=== PATIENT | female | born 1955 | race Caucasian/White ===

== ENCOUNTER 2017-12-28 01:28 | Inpatient (IN) | payer OTHER ==
[2017-12-28] MEDS ORDERED: APRESOLINE IV ONE (01:33)
[2017-12-28] MEDS ORDERED: SUBLIMAZE IV ONE (01:33)
[2017-12-28] MEDS ORDERED: NACL 0.9% 500 ML 500 ML IV ONE (01:34)
[2017-12-28] MEDS ORDERED: NITROSTAT SL PRN (01:35)
--- NOTE | 2017-12-28 01:37 | Emergency Department Report ---
ED General Adult HPI - General Chief complaint: Weakness Stated complaint: POSS STROKE Time Seen by Provider: 12/28/17 01:33 Source: patient, EMS (my EMS disclaimer. Verbal report received from EMS.ems notes not available at time of chart dictation), RN notes reviewed Mode of arrival: Stretcher Limitations: Language Barrier, Physical Limitation - History of Present Illness Initial comments: emergency room rn: Nurse Merissa Duran This is a 62-year-old female who is not known to this provider previously. Past medical history includes hypertension and obesity. The patient is brought to the hospital by EMS with a primary complaint of chest pain. EMS also verbally indicated that the patient had an unresponsive and hypertensive episode in the field. Patient may have syncopized. She is not certain. In the emergency room she complains of chest pain. She indicates the chest pain is central. It does not radiate to the back, arms and neck. She is having difficulty describing a qualitative nature of the symptoms. She does not recall losing consciousness or passing out prior to arrival. She also complains of abdominal pain. She might have a headache, she is not certain. She denies focal extremity weakness. The patient is not able to describe radiation, exacerbating or relieving factors of her symptoms. -: Sudden Location: chest, abdomen Quality: other Consistency: other Improves with: other Worsens with: other Associated Symptoms: confusion, chest pain, loss of appetite, syncope - Related Data Home Medications Medication Instructions Recorded Confirmed Last Taken ALBUTEROL Inhaler (OR & NICU) 2 puff IH QID PRN 08/28/14 12/16/14 08/27/14 18:00 [Proair] Acetaminophen with Codeine 300 mg PO Q12HR PRN 08/28/14 12/16/14 09/02/14 18:00 [Acetaminophen-Codeine #2 TAB] Cetirizine HCl [ZyrTEC] 10 mg PO QDAY 08/28/14 12/16/14 09/02/14 18:00 Dicyclomine [Bentyl] 10 mg PO QID 08/28/14 12/16/14 09/02/14 18:00 Esomeprazole Magnesium [NexIUM 1 tab PO BID 08/28/14 12/16/14 09/02/14 18:00 24Hr] Gemfibrozil [Lopid] 600 mg PO BID 08/28/14 12/16/14 09/02/14 18:00 Losartan/Hydrochlorothiazide 1 each PO QDAY 08/28/14 12/16/14 09/02/14 18:00 [Hyzaar 100-25 Tablet] PARoxetine [Paxil] 20 mg PO DAILY 08/28/14 12/16/14 09/02/14 18:00 raNITIdine HCl [Ranitidine 150mg 150 mg PO BID 08/28/14 12/16/14 09/02/14 18:00 Cap] Previous Rx's Medication Instructions Recorded Last Taken Type Ibuprofen [Motrin] 800 mg PO TID #40 tablet 03/04/13 09/02/14 18:00 Rx methOCARBAMOL [Robaxin] 500 mg PO BID #30 tab 03/04/13 09/02/14 18:00 Rx traMADol [Ultram 50 MG tab] 50 mg PO Q6HR PRN #20 tablet 03/04/13 09/02/14 18: 00 Rx Allergies Allergy/AdvReac Type Severity Reaction Status Date / Time No Known Allergies Allergy Unverified 03/04/13 14:28 ED Review of Systems ROS: Stated complaint: POSS STROKE Other details as noted in HPI Comment: Unobtainable due to pts medical conditions ED Past Medical Hx - Past Medical History Hx Hypertension: Yes (8YRS) Hx Heart Attack/AMI: No Hx Liver Disease: No Hx Renal Disease: No Hx Arthritis: Yes (KNEES) Hx Seizures: No Hx Asthma: No (but has inhaler for frequent colds) Hx COPD: No - Social History Smoking Status: Never Smoker - Medications Home Medications: Home Medications Medication Instructions Recorded Confirmed Last Taken Type Ibuprofen [Motrin] 800 mg PO TID #40 tablet 03/04/13 12/16/14 09/02/14 18:00 Rx methOCARBAMOL [Robaxin] 500 mg PO BID #30 tab 03/04/13 12/16/14 09/02/14 18:00 Rx traMADol [Ultram 50 MG tab] 50 mg PO Q6HR PRN #20 tablet 03/04/13 12/16/1409/02 18:00 Rx ALBUTEROL Inhaler (OR & NICU) 2 puff IH QID PRN 08/28/14 12/16/14 08/27/14 18: 00 History [Proair] Acetaminophen with Codeine 300 mg PO Q12HR PRN 08/28/14 12/16/14 09/02/14 18:00 History [Acetaminophen-Codeine #2 TAB] Cetirizine HCl [ZyrTEC] 10 mg PO QDAY 08/28/14 12/16/14 09/02/14 18:00 History Dicyclomine [Bentyl] 10 mg PO QID 08/28/14 12/16/14 09/02/14 18:00 History Esomeprazole Magnesium [NexIUM 1 tab PO BID 08/28/14 12/16/14 09/02/14 18:00 History 24Hr] Gemfibrozil [Lopid] 600 mg PO BID 08/28/14 12/16/14 09/02/14 18:00 History Losartan/Hydrochlorothiazide 1 each PO QDAY 08/28/14 12/16/14 09/02/14 18:00 History [Hyzaar 100-25 Tablet] PARoxetine [Paxil] 20 mg PO DAILY 08/28/14 12/16/14 09/02/14 18:00 History raNITIdine HCl [Ranitidine 150mg 150 mg PO BID 08/28/14 12/16/14 09/02/14 18:00 History Cap] ED Physical Exam - General Limitations: Physical Limitation General appearance: alert, anxious, in distress, obese - Head Head exam: Present: atraumatic, normocephalic - Eye Eye exam: Present: normal appearance, EOMI. Absent: nystagmus - ENT ENT exam: Present: normal exam, normal orophraynx, mucous membranes moist, normal external ear exam - Neck Neck exam: Present: normal inspection, full ROM. Absent: tenderness, meningismus - Respiratory Respiratory exam: Present: normal lung sounds bilaterally. Absent: respiratory distress - Cardiovascular Cardiovascular Exam: Present: regular rate, normal rhythm, normal heart sounds. Absent: bradycardia, tachycardia, irregular rhythm, systolic murmur, diastolic murmur, rubs, gallop - GI/Abdominal GI/Abdominal exam: Present: soft. Absent: distended, tenderness, guarding, rebound, rigid, pulsatile mass - Extremities Exam Extremities exam: Present: normal inspection, full ROM, normal capillary refill , other (2+ pulses noted in the bilateral upper, lower extremities. Compartments soft. No long bony tenderness. The pelvis is stable.). Absent: tenderness, pedal edema, joint swelling, calf tenderness - Back Exam Back exam: Present: normal inspection, full ROM. Absent: tenderness, CVA tenderness (R), paraspinal tenderness, vertebral tenderness - Neurological Exam Neurological exam: Present: alert, CN II-XII intact, other (Extraocular movements intact. Tongue midline. No facial droop. Facial sensation intact to light touch in the V1, V2, V3 distribution bilaterally. 5 and 5 strength in 4 extremities.. Sensation is intact to light touch in 4 extremities.). Absent : motor sensory deficit - Psychiatric Psychiatric exam: Present: anxious - Skin Skin exam: Present: warm, dry, intact, normal color. Absent: rash ED Course Vital Signs 12/28/17 12/28/17 12/28/17 01:42 02:14 02:18 Temperature 98.1 F Pulse Rate 91 H 72 Respiratory 13 18 Rate Blood Pressure 194/103 173/83 Blood Pressure 194/103 [Left] O2 Sat by Pulse 98 Oximetry 12/28/17 12/28/17 03:30 04:00 Temperature Pulse Rate 90 83 Respiratory 15 14 Rate Blood Pressure 158/76 158/76 Blood Pressure [Left] O2 Sat by Pulse Oximetry - Reevaluation(s) Reevaluation #1: 12/28/17 02:42 Differential diagnosis, including but not limited to: Acute coronary syndrome, aortic disease, pneumonia, hiatal hernia, hypertensive urgency, arrhythmia, structural cardiac disease, intracranial hemorrhage, transient ischemic attack, hypertensive urgency Assessment and plan: 62-year-old female with a primary complaint of chest pain, and a reported episode of loss of consciousness and unresponsiveness in the field. Patient has a GCS of 15, with an NIH score of 0 at this time. She has no lateralizing motor deficits and her sensation is intact to light touch in her upper and lower extremities, has an NIH score of 0, and is therefore not a TPA candidate. She is quite hypertensive, and has equal pulses in upper, lower extremities. Given her complaint of chest pain, hypertension, episode of unresponsiveness, emergent angiogram has been ordered to exclude aortic disease. The patient's pain will be treated, and she will be given fluids and hydralazine. We will reassess after her imaging has resulted. Reevaluation #2: 12/28/17 04:43 CT scan of the brain shows no bleed. Possible subacute CVA is noted. Has an NIH score of 0 at this time. Does not merit tPA and does not require emergent endovascular imaging at this time. No dissection or pulmonary embolus is noted. Blood pressure improved. Repeat motor exam unchanged. Dr. Dukes accepted the patient to the medical service on behalf of Dr. Wesley ED Medical Decision Making - Lab Data Result diagrams: 12/28/17 01:30 12/28/17 01:30 Vital Signs 12/28/17 12/28/17 12/28/17 01:42 02:14 02:18 Temperature 98.1 F Pulse Rate 91 H 72 Respiratory 13 18 Rate Blood Pressure 194/103 173/83 Blood Pressure 194/103 [Left] O2 Sat by Pulse 98 Oximetry Lab Results 12/28/17 12/28/17 12/28/17 Range/Units 01:30 01:30 01:59 WBC 10.4 (4.5-11.0) K/mm3 RBC 3.74 (3.65-5.03) M/mm3 Hgb 12.6 (10.1-14.3) gm/dl Hct 36.7 (30.3-42.9) % MCV 98 H (79-97) fl MCH 34 H (28-32) pg MCHC 34 (30-34) % RDW 13.2 (13.2-15.2) % Plt Count 202 (140-440) K/mm3 Lymph % (Auto) 41.4 H (13.4-35.0) % Spink % (Auto) 7.3 (0.0-7.3) % Eos % (Auto) 3.5 (0.0-4.3) % Baso % (Auto) 0.4 (0.0-1.8) % Lymph # 4.3 (1.2-5.4) K/mm3 Spink # 0.8 (0.0-0.8) K/mm3 Eos # 0.4 (0.0-0.4) K/mm3 Baso # 0.0 (0.0-0.1) K/mm3 Seg Neutrophils % 47.4 (40.0-70.0) % Seg Neutrophils # 4.9 (1.8-7.7) K/mm3 PT 13.3 (12.2-14.9) Sec. INR 0.96 (0.87-1.13) APTT 29.0 (24.2-36.6) Sec. POC Glucose 129 H (70-105) Labs 12/28/17 12/28/17 12/28/17 01:30 01:30 01:30 WBC 10.4 RBC 3.74 Hgb 12.6 Hct 36.7 MCV 98 H MCH 34 H MCHC 34 RDW 13.2 Plt Count 202 Lymph % (Auto) 41.4 H Spink % (Auto) 7.3 Eos % (Auto) 3.5 Baso % (Auto) 0.4 Lymph # 4.3 Spink # 0.8 Eos # 0.4 Baso # 0.0 Seg Neutrophils % 47.4 Seg Neutrophils # 4.9 PT 13.3 INR 0.96 APTT 29.0 Thrombin Time 16.8 Sodium 141 Potassium 4.8 Chloride 105.0 Carbon Dioxide 22 Anion Gap 19 BUN 28 H Creatinine 0.6 L Estimated GFR > 60 BUN/Creatinine Ratio 47 Glucose 121 H POC Glucose Calcium 9.3 Total Bilirubin 0.20 AST 28 ALT 19 Alkaline Phosphatase 93 Total Creatine Kinase 98 CK-MB (CK-2) 1.2 CK-MB (CK-2) Rel Index 1.2 Troponin T < 0.010 Total Protein 7.9 Albumin 3.9 Albumin/Globulin Ratio 1.0 Salicylates Acetaminophen Plasma/Serum Alcohol 12/28/17 12/28/17 12/28/17 01:30 01:30 01:30 WBC RBC Hgb Hct MCV MCH MCHC RDW Plt Count Lymph % (Auto) Spink % (Auto) Eos % (Auto) Baso % (Auto) Lymph # Spink # Eos # Baso # Seg Neutrophils % Seg Neutrophils # PT INR APTT Thrombin Time Sodium Potassium Chloride Carbon Dioxide Anion Gap BUN Creatinine Estimated GFR BUN/Creatinine Ratio Glucose POC Glucose Calcium Total Bilirubin AST ALT Alkaline Phosphatase Total Creatine Kinase CK-MB (CK-2) CK-MB (CK-2) Rel Index Troponin T Total Protein Albumin Albumin/Globulin Ratio Salicylates < 0.3 L Acetaminophen < 5.0 L Plasma/Serum Alcohol < 0.01 12/28/17 01:59 WBC RBC Hgb Hct MCV MCH MCHC RDW Plt Count Lymph % (Auto) Spink % (Auto) Eos % (Auto) Baso % (Auto) Lymph # Spink # Eos # Baso # Seg Neutrophils % Seg Neutrophils # PT INR APTT Thrombin Time Sodium Potassium Chloride Carbon Dioxide Anion Gap BUN Creatinine Estimated GFR BUN/Creatinine Ratio Glucose POC Glucose 129 H Calcium Total Bilirubin AST ALT Alkaline Phosphatase Total Creatine Kinase CK-MB (CK-2) CK-MB (CK-2) Rel Index Troponin T Total Protein Albumin Albumin/Globulin Ratio Salicylates Acetaminophen Plasma/Serum Alcohol - EKG Data -: EKG Interpreted by Me EKG shows normal: sinus rhythm - EKG Data When compared to previous EKG there are: previous EKG unavailable 12/28/17 02:45 Sinus, 89 bpm, normal axis, normal intervals, low voltage, motion artifact, not a STEMI - Radiology Data Radiology results: report reviewed, image reviewed X-ray of the chest shows no acute disease. Blunting of the right costophrenic angles noted, pleural thickening versus pleural effusion is suggested. Critical care attestation.: If time is entered above; I have spent that time in minutes in the direct care of this critically ill patient, excluding procedure time. ED Disposition Clinical Impression: Chest pain, Unresponsive episode, Hypertensive urgency Disposition: OP ADMIT IP TO THIS HOSP Is pt being admited?: Yes Does the pt Need Aspirin: Yes Condition: Good Instructions: Chest Pain (ED)
[2017-12-28 02:17] LABS: Basophils % (Auto) 0.4 % (0.0-1.8); Eosinophils # (Auto) 0.4 K/mm3 (0.0-0.4); Eosinophils % (Auto) 3.5 % (0.0-4.3); Hematocrit 36.7 % (30.3-42.9); Hemoglobin 12.6 gm/dl (10.1-14.3); Lymphocytes # (Auto) 4.3 K/mm3 (1.2-5.4); Lymphocytes % (Auto) 41.4 % (13.4-35.0); Mean Corpuscular HGB Conc 34 % (30-34); Mean Corpuscular Hemoglobin 34 pg (28-32); Mean Corpuscular Volume 98 fl (79-97); Monocytes # (Auto) 0.8 K/mm3 (0.0-0.8); Monocytes % (Auto) 7.3 % (0.0-7.3); Platelet Count 202 K/mm3 (140-440); Red Blood Count 3.74 M/mm3 (3.65-5.03); Red Cell Distribution Width 13.2 % (13.2-15.2)
--- NOTE | 2017-12-28 02:21 | XRay Report ---
FINAL REPORT EXAM: XR CXR CLINICAL INDICATIONS: CP FINDINGS: Single frontal view of the chest was acquired. The heart is normal in size. The lungs appear clear. There is blunting of the right costophrenic sulcus which could represent pleural thickening or small pleural effusion. IMPRESSION: NO CONSOLIDATIVE PULMONARY INFILTRATE BLUNTING OF RIGHT COSTOPHRENIC SULCUS, PLEURAL THICKENING OR PLEURAL EFFUSION
[2017-12-28 02:31] LABS: INR 0.96 (0.87-1.13)
[2017-12-28 02:43] LABS: Creatine Kinase MB 1.2 ng/mL (0.0-4.0)
[2017-12-28 02:44] LABS: Albumin 3.9 g/dL (3.9-5); BUN/Creatinine Ratio 47; Blood Urea Nitrogen 28 mg/dL (7-17); Calcium 9.3 mg/dL (8.4-10.2); Hemolysis Index 194
[2017-12-28 02:48] LABS: Thrombin Time 16.8 Sec. (15.1-19.6)
[2017-12-28 02:50] LABS: Alanine Aminotransferase 19 units/L (7-56)
--- NOTE | 2017-12-28 04:06 | Cat Scan Report ---
FINAL REPORT EXAM: CT HEAD/BRAIN WO CON HISTORY: Stroke symptoms TECHNIQUE: CT imaging acquired through the head without intravenous contrast. Transaxial reformations are provided. PRIORS: None. FINDINGS: The ventricles, cisterns and sulci are within normal limits. No intraparenchymal or extra-axial mass, hemorrhage, or mass effect. Predominantly subcortical white matter hypodensity within the superior right frontal gyrus on axial series 2, image 52 has some transcortical features on a couple of images. Bo and white-matter differentiation is otherwise within normal limits for patient age. Normal spherical shape of the globes. No significant abnormality involving the imaged portions of the paranasal sinuses and mastoid air cells. No skull or facial fracture visualized. IMPRESSION: Area of hypodensity in the superior right frontal gyrus could potentially be sequela of infarct in the distribution of the right anterior cerebral artery. There is no acute intracranial hemorrhage or mass effect. Dr. Hall discussed findings with at 0301 central Time on 12/28/2017 immediately following the examination.
--- NOTE | 2017-12-28 04:12 | Cat Scan Report ---
FINAL REPORT EXAM: CT ANGIO CHEST HISTORY: chest pain dissection protocol TECHNIQUE: CT imaging obtained through the chest in combined systemic and pulmonary angiographic phase following intravenous administration of contrast. Transaxial, Coronal and sagittal reformats with maximal intensity projections are provided. PRIORS: Chest radiograph of the same date. FINDINGS: Normal caliber main pulmonary artery. Well opacified pulmonary arterial tree. No pulmonary embolism. No pericardial effusion. Thoracic aorta is normal in course and caliber. No the wall irregularity, periaortic fluid or stranding. No pneumothorax, effusion or focal airspace disease. Right lower lung punctate calcified pulmonary granuloma. Calcification along the right diaphragmatic pleura. Very mild posterior right lower lung pleural thickening accounts for blunting of the right costophrenic angle. The central airways are patent. No bronchiectasis. Imaged portion of the upper abdomen is unremarkable. Please see CT abdomen and pelvis angiogram of the same date. The superficial soft tissues are unremarkable. Old posterior right 10th rib fracture deformity. No acute bony abnormality or worrisome osseous lesions identified. IMPRESSION: No findings of acute aortic syndrome, pulmonary embolism or other acute abnormality.
--- NOTE | 2017-12-28 04:17 | Cat Scan Report ---
FINAL REPORT EXAM: CT ANGIO ABDOMEN PELVIS HISTORY: abd pain dissection protocol TECHNIQUE: CT images are acquired through the Abdomen and Pelvis in angiographic phase following intravenous administration of contrast. Transaxial, coronal and sagittal reformations with maximal intensity projection are provided. PRIORS: None FINDINGS: Please see CT chest angiogram of the same date. The liver, gallbladder, pancreas, spleen, and adrenal glands are unremarkable. Kidneys show no worrisome lesions, hydronephrosis, or calculi. Urinary bladder is unremarkable. Anteverted uterus. No free fluid in the pelvis. Pelvic phleboliths are noted. Small and large bowel are normal in caliber. Sigmoid diverticulosis without surrounding inflammatory findings. Appendix is normal. No free air, free fluid, or lymphadenopathy identified. Aorta is normal in course and caliber. Superficial soft tissues are unremarkable. No acute or aggressive appearing skeletal findings. Lower lumbar sequela of disc degeneration including disc extrusion with caudal extension in the lower lumbar spine on sagittal image 111. There is transitional lumbosacral anatomy. IMPRESSION: No acute findings in the abdomen or pelvis including no findings of acute aortic syndrome.
[2017-12-28] MEDS ORDERED: BABY ASPIRIN PO ONE (04:44)
[2017-12-28] MEDS ORDERED: MORPHINE IV PRN (07:51)
[2017-12-28] MEDS ORDERED: TYLENOL PO PRN (07:51)
[2017-12-28] MEDS ORDERED: MILK OF MAGNESIA PO PRN (07:51)
[2017-12-28] MEDS ORDERED: SODIUM CHLORIDE FLUSH SYRINGE 10 ML IV PRN (07:51)
--- NOTE | 2017-12-28 07:56 | History and Physical Report ---
History of Present Illness Date of admission: 12/28/17 04:44 Medications and Allergies Allergies Allergy/AdvReac Type Severity Reaction Status Date / Time No Known Allergies Allergy Unverified 03/04/13 14:28 Home Medications Medication Instructions Recorded Confirmed Last Taken Type Ibuprofen [Motrin] 800 mg PO TID #40 tablet 03/04/13 12/28/17 09/02/14 18:00 Rx methOCARBAMOL [Robaxin] 500 mg PO BID #30 tab 03/04/13 12/28/17 09/02/14 18:00 Rx ALBUTEROL Inhaler (OR & NICU) 2 puff IH QID PRN 08/28/14 12/28/17 08/27/14 18: 00 History [Proair] Cetirizine HCl [ZyrTEC] 10 mg PO QDAY 08/28/14 12/28/17 09/02/14 18:00 History Dicyclomine [Bentyl] 10 mg PO QID 08/28/14 12/28/17 09/02/14 18:00 History Esomeprazole Magnesium [NexIUM 1 tab PO BID 08/28/14 12/28/17 09/02/14 18:00 History 24Hr] Gemfibrozil [Lopid] 600 mg PO BID 08/28/14 12/28/17 09/02/14 18:00 History Losartan/Hydrochlorothiazide 1 each PO QDAY 08/28/14 12/28/17 09/02/14 18:00 History [Hyzaar 100-25 Tablet] PARoxetine [Paxil] 20 mg PO DAILY 08/28/14 12/28/17 09/02/14 18:00 History raNITIdine HCl [Ranitidine 150mg 150 mg PO BID 08/28/14 12/28/17 09/02/14 18:00 History Cap] Active Meds: Active Medications Nitroglycerin (Nitrostat) 0.4 mg SL .Q5MIN PRN PRN Reason: Chest Pain Exam - Constitutional Vitals: Temp Pulse Resp BP Pulse Ox 98.1 F 63 13 132/51 100 12/28/17 07:40 12/28/17 07:40 12/28/17 07:51 12/28/17 07:40 12/28/17 07:51 Results - Labs CBC & Chem 7: 12/28/17 01:30 12/28/17 01:30 Labs: Laboratory Last Values WBC 10.4 K/mm3 (4.5-11.0) 12/28/17 01:30 RBC 3.74 M/mm3 (3.65-5.03) 12/28/17 01:30 Hgb 12.6 gm/dl (10.1-14.3) 12/28/17 01:30 Hct 36.7 % (30.3-42.9) 12/28/17 01:30 MCV 98 fl (79-97) H 12/28/17 01:30 MCH 34 pg (28-32) H 12/28/17 01:30 MCHC 34 % (30-34) 12/28/17 01:30 RDW 13.2 % (13.2-15.2) 12/28/17 01:30 Plt Count 202 K/mm3 (140-440) 12/28/17 01:30 Lymph % (Auto) 41.4 % (13.4-35.0) H 12/28/17 01:30 [place] % (Auto) 7.3 % (0.0-7.3) 12/28/17 01:30 Eos % (Auto) 3.5 % (0.0-4.3) 12/28/17 01:30 Baso % (Auto) 0.4 % (0.0-1.8) 12/28/17 01:30 Lymph # 4.3 K/mm3 (1.2-5.4) 12/28/17 01:30 [place] # 0.8 K/mm3 (0.0-0.8) 12/28/17 01:30 Eos # 0.4 K/mm3 (0.0-0.4) 12/28/17 01:30 Baso # 0.0 K/mm3 (0.0-0.1) 12/28/17 01:30 Seg Neutrophils % 47.4 % (40.0-70.0) 12/28/17 01:30 Seg Neutrophils # 4.9 K/mm3 (1.8-7.7) 12/28/17 01:30 PT 13.3 Sec. (12.2-14.9) 12/28/17 01:30 INR 0.96 (0.87-1.13) 12/28/17 01:30 APTT 29.0 Sec. (24.2-36.6) 12/28/17 01:30 Thrombin Time 16.8 Sec. (15.1-19.6) 12/28/17 01:30 Sodium 141 mmol/L (137-145) 12/28/17 01:30 Potassium 4.8 mmol/L (3.6-5.0) 12/28/17 01:30 Chloride 105.0 mmol/L (98-107) 12/28/17 01:30 Carbon Dioxide 22 mmol/L (22-30) 12/28/17 01:30 Anion Gap 19 mmol/L 12/28/17 01:30 BUN 28 mg/dL (7-17) H 12/28/17 01:30 Creatinine 0.6 mg/dL (0.7-1.2) L 12/28/17 01:30 Estimated GFR > 60 ml/min 12/28/17 01:30 BUN/Creatinine Ratio 47 % 12/28/17 01:30 Glucose 121 mg/dL (65-100) H 12/28/17 01:30 POC Glucose 129 (70-105) H 12/28/17 01:59 Calcium 9.3 mg/dL (8.4-10.2) 12/28/17 01:30 Total Bilirubin 0.20 mg/dL (0.1-1.2) 12/28/17 01:30 AST 28 units/L (5-40) 12/28/17 01:30 ALT 19 units/L (7-56) 12/28/17 01:30 Alkaline Phosphatase 93 units/L (35-129) 12/28/17 01:30 Total Creatine Kinase 98 units/L (30-135) 12/28/17 01:30 CK-MB (CK-2) 1.2 ng/mL (0.0-4.0) 12/28/17 01:30 CK-MB (CK-2) Rel Index 1.2 (0-4) 12/28/17 01:30 Troponin T < 0.010 ng/mL (0.00-0.029) 12/28/17 01:30 Total Protein 7.9 g/dL (6.3-8.2) 12/28/17 01:30 Albumin 3.9 g/dL (3.9-5) 12/28/17 01:30 Albumin/Globulin Ratio 1.0 % 12/28/17 01:30 Salicylates < 0.3 mg/dL (2.8-20.0) L 12/28/17 01:30 Acetaminophen < 5.0 ug/mL (10.0-30.0) L 12/28/17 01:30 Plasma/Serum Alcohol < 0.01 % (0-0.07) 12/28/17 01:30
[2017-12-28] MEDS ORDERED: PHENERGAN PR PRN (09:30)
[2017-12-28] MEDS ORDERED: ZOFRAN IV PRN (09:30)
[2017-12-28] MEDS ORDERED: REGLAN PO PRN (09:30)
[2017-12-28] MEDS ORDERED: DULCOLAX PR PRN (10:00)
--- NOTE | 2017-12-28 11:50 | Consultation ---
History of Present Illness Consult date: 12/28/17 Consult reason: chest pain, syncope History of present illness: This is a 62 year old woman who does not speak Egyptian. Family members at bedside used for translation, reports that patient has a history of hypertension and diabetes. There is no history of coronary artery disease or prior cardiac evaluation. Patient was brought in with syncope. Cardiac consultation was requested. Family members at bedside reports the patient became diaphoretic and passed out shortly after hearing her son was in an accident. On assessment, the patient's chest pain appears musculoskeletal. Her pain is reproducible with palpation. Noted a systolic blood pressure greater than [address] scan reports a possible infarct of the right anterior cerebral artery but no intracranial hemorrhage. Chest CT scan is negative for pulmonary embolism. 12 lead ECG shows a normal sinus rhythm, no acute ischemic changes. Medications and Allergies Allergies Allergy/AdvReac Type Severity Reaction Status Date / Time No Known Allergies Allergy Unverified 03/04/13 14:28 Home Medications Medication Instructions Recorded Confirmed Last Taken Type Ibuprofen [Motrin] 800 mg PO TID #40 tablet 03/04/13 12/28/17 09/02/14 18:00 Rx methOCARBAMOL [Robaxin] 500 mg PO BID #30 tab 03/04/13 12/28/17 09/02/14 18:00 Rx ALBUTEROL Inhaler (OR & NICU) 2 puff IH QID PRN 08/28/14 12/28/17 08/27/14 18: 00 History [Proair] Cetirizine HCl [ZyrTEC] 10 mg PO QDAY 08/28/14 12/28/17 09/02/14 18:00 History Dicyclomine [Bentyl] 10 mg PO QID 08/28/14 12/28/17 09/02/14 18:00 History Esomeprazole Magnesium [NexIUM 1 tab PO BID 08/28/14 12/28/17 09/02/14 18:00 History 24Hr] Gemfibrozil [Lopid] 600 mg PO BID 08/28/14 12/28/17 09/02/14 18:00 History Losartan/Hydrochlorothiazide 1 each PO QDAY 08/28/14 12/28/17 09/02/14 18:00 History [Hyzaar 100-25 Tablet] PARoxetine [Paxil] 20 mg PO DAILY 08/28/14 12/28/17 09/02/14 18:00 History raNITIdine HCl [Ranitidine 150mg 150 mg PO BID 08/28/14 12/28/17 09/02/14 18:00 History Cap] Active Meds: Active Medications Acetaminophen (Tylenol) 650 mg PO Q4H PRN PRN Reason: Pain MILD(1-3)/Fever >100.5/DUNBAR Aspirin (Ecotrin) 325 mg PO QDAY GABRIEL Atorvastatin Calcium (Lipitor) 40 mg PO QHS GABRIEL Bisacodyl (Dulcolax) 10 mg [place] QDAY PRN PRN Reason: Constipation Magnesium Hydroxide (Milk Of Magnesia) 30 ml PO Q4H PRN PRN Reason: Constipation Metoclopramide HCl (Reglan) 10 mg PO Q6H PRN PRN Reason: Nausea And Vomiting Morphine Sulfate (Morphine) 2 mg IV Q5MIN PRN PRN Reason: Chest Pain unrelieved by NTG Nitroglycerin (Nitrostat) 0.4 mg SL .Q5MIN PRN PRN Reason: Chest Pain Ondansetron HCl (Zofran) 4 mg IV Q8H PRN PRN Reason: Nausea And Vomiting Promethazine HCl (Phenergan) 25 mg [place] Q6H PRN PRN Reason: Nausea And Vomiting Sodium Chloride (Sodium Chloride Flush Syringe 10 Ml) 10 ml IV PRN PRN PRN Reason: LINE FLUSH Physical Examination Vital Signs Temp Pulse Resp BP Pulse Ox 98 F 91 H 13 194/103 98 12/28/17 01:42 12/28/17 01:42 12/28/17 01:42 12/28/17 01:42 12/28/17 01:42 General appearance: no acute distress HEENT: Positive: PERRL Cardiac: Positive: Reg Rate and Rhythm Lungs: Positive: Decreased Breath Sounds Neuro: Positive: Grossly Intact Extremities: Absent: edema Results 12/28/17 01:30 12/28/17 01:30 Cardiac Enzymes 12/28/17 Range/Units 01:30 AST 28 (5-40) units/L CK-MB (CK-2) 1.2 (0.0-4.0) ng/mL Coagulation 12/28/17 Range/Units 01:30 PT 13.3 (12.2-14.9) Sec. INR 0.96 (0.87-1.13) APTT 29.0 (24.2-36.6) Sec. CBC 12/28/17 Range/Units 01:30 WBC 10.4 (4.5-11.0) K/mm3 RBC 3.74 (3.65-5.03) M/mm3 Hgb 12.6 (10.1-14.3) gm/dl Hct 36.7 (30.3-42.9) % Plt Count 202 (140-440) K/mm3 Lymph # 4.3 (1.2-5.4) K/mm3 [place] # 0.8 (0.0-0.8) K/mm3 Eos # 0.4 (0.0-0.4) K/mm3 Baso # 0.0 (0.0-0.1) K/mm3 Comprehensive Metabolic Panel 12/28/17 Range/Units 01:30 Sodium 141 (137-145) mmol/L Potassium 4.8 (3.6-5.0) mmol/L Chloride 105.0 (98-107) mmol/L Carbon Dioxide 22 (22-30) mmol/L BUN 28 H (7-17) mg/dL Creatinine 0.6 L (0.7-1.2) mg/dL Glucose 121 H (65-100) mg/dL Calcium 9.3 (8.4-10.2) mg/dL AST 28 (5-40) units/L ALT 19 (7-56) units/L Alkaline Phosphatase 93 (35-129) units/L Total Protein 7.9 (6.3-8.2) g/dL Albumin 3.9 (3.9-5) g/dL Assessment and Plan Syncope chest CT scan is negative for pulmonary embolism Questionable CVA head CT scan reports a possible infarct of the right anterior cerebral artery but no intracranial hemorrhage. Chest pain, musculoskeletal Hypertension Diabetes
--- NOTE | 2017-12-28 12:36 | Magnetic Resonance Report ---
MRI OF THE BRAIN WITHOUT CONTRAST: HISTORY: CVA PROCEDURE: Multiplanar, multisequence MR imaging of the brain without IV contrast was performed. FINDINGS: There are scattered areas of increased T2 signal in the periventricular and subcortical white matter which is a nonspecific finding. The remaining brain parenchyma is unremarkable on all sequences. No evidence for acute ischemia, hemorrhage or mass. No chronic infarct or extra-axial fluid collection. The midline structures are central. The basal cisterns are patent. Normal ventricular size. The orbital cavities and sella turcica demonstrate no abnormality. The visualized paranasal sinuses and mastoid air cells are well aerated. IMPRESSION: Nonspecific chronic white matter changes. No acute intracranial process is identified.
[2017-12-28 13:48] LABS: BUN/Creatinine Ratio 33; Blood Urea Nitrogen 20 mg/dL (7-17); Calcium 8.9 mg/dL (8.4-10.2); HDL Cholesterol 32 mg/dL (40-59); Hemolysis Index 8; LDL Cholesterol,Direct 134 mg/dL (50-130)
--- NOTE | 2017-12-28 16:55 | Consultation ---
History of Present Illness Consult date: 12/28/17 Requesting physician: SIDDHARTH MEJIA Reason for Consult: syncope History of present illness: This is a 62 year old woman who does not speak Brazilian. Family members at bedside used for translation, reports that patient has a history of hypertension and diabetes. There is no history of coronary artery disease or prior cardiac evaluation. The patient received some bad news, that her son was in a car accident. This prompted some emotion and the patient complained of chest pain and passed out. She came to ER where EKG was without abnormality, troponin not elevated. A brain CT revealed a small hypodensity in the rt.superior central gyrus, which could have been an infarct. Pt.was admitted for evaluation. Echocardiogram is normal with a 60% EF and CTA chest neg. for PE. The pt. has had no further symptoms, and is resting comfortably. BP was 194 /103 on arrival to ER. Lipids and triglycerides are also elevated. Past History Past Medical History: hypertension Social history: , lives with family. denies: smoking, alcohol abuse Medications and Allergies Allergies Allergy/AdvReac Type Severity Reaction Status Date / Time No Known Allergies Allergy Unverified 03/04/13 14:28 Home Medications Medication Instructions Recorded Confirmed Last Taken Type Ibuprofen [Motrin] 800 mg PO TID #40 tablet 03/04/13 12/28/17 09/02/14 18:00 Rx methOCARBAMOL [Robaxin] 500 mg PO BID #30 tab 03/04/13 12/28/17 09/02/14 18:00 Rx ALBUTEROL Inhaler (OR & NICU) 2 puff IH QID PRN 08/28/14 12/28/17 08/27/14 18: 00 History [Proair] Cetirizine HCl [ZyrTEC] 10 mg PO QDAY 08/28/14 12/28/17 09/02/14 18:00 History Dicyclomine [Bentyl] 10 mg PO QID 08/28/14 12/28/17 09/02/14 18:00 History Esomeprazole Magnesium [NexIUM 1 tab PO BID 08/28/14 12/28/17 09/02/14 18:00 History 24Hr] Gemfibrozil [Lopid] 600 mg PO BID 08/28/14 12/28/17 09/02/14 18:00 History Losartan/Hydrochlorothiazide 1 each PO QDAY 08/28/14 12/28/17 09/02/14 18:00 History [Hyzaar 100-25 Tablet] PARoxetine [Paxil] 20 mg PO DAILY 08/28/14 12/28/17 09/02/14 18:00 History raNITIdine HCl [Ranitidine 150mg 150 mg PO BID 08/28/14 12/28/17 09/02/14 18:00 History Cap] Active Meds: Active Medications Acetaminophen (Tylenol) 650 mg PO Q4H PRN PRN Reason: Pain MILD(1-3)/Fever >100.5/DUNBAR Aspirin (Ecotrin) 325 mg PO QDAY GABRIEL Atorvastatin Calcium (Lipitor) 40 mg PO QHS GABRIEL Bisacodyl (Dulcolax) 10 mg [place] QDAY PRN PRN Reason: Constipation Losartan Potassium (Cozaar) 50 mg PO QDAY GABRIEL Magnesium Hydroxide (Milk Of Magnesia) 30 ml PO Q4H PRN PRN Reason: Constipation Metoclopramide HCl (Reglan) 10 mg PO Q6H PRN PRN Reason: Nausea And Vomiting Morphine Sulfate (Morphine) 2 mg IV Q5MIN PRN PRN Reason: Chest Pain unrelieved by NTG Last Admin: 12/28/17 12:31 Dose: 2 mg Nitroglycerin (Nitrostat) 0.4 mg SL .Q5MIN PRN PRN Reason: Chest Pain Ondansetron HCl (Zofran) 4 mg IV Q8H PRN PRN Reason: Nausea And Vomiting Promethazine HCl (Phenergan) 25 mg [place] Q6H PRN PRN Reason: Nausea And Vomiting Sodium Chloride (Sodium Chloride Flush Syringe 10 Ml) 10 ml IV PRN PRN PRN Reason: LINE FLUSH Review of Systems Constitutional: no fever, no chills, no chronic pain Ears, nose, mouth and throat: no decreased hearing, no nasal congestion Cardiovascular: chest pain, syncope, no palpitations, no rapid/irregular heart beat, no edema, no lightheadedness, no shortness of breath Respiratory: no cough, no congestion Gastrointestinal: no abdominal pain, no nausea, no vomiting, no diarrhea, no constipation Genitourinary Female: no dysuria, no urinary frequency, no urgency Musculoskeletal: no neck stiffness, no neck pain, no arm numbness/tingling, no leg numbness/tingling Integumentary: no rash Neurological: syncope, headaches, no weakness, no parathesias, no numbness, no tingling, no seizures, no tremors, no ataxia, no lack of coordination, no vertigo, no change in speech, no change in mentation, no confusion, no gait dysfunction, no motor disturbance, no sensory deficit, no double vision, no loss of vision Physical Examination - Vital Signs Vital Signs: Vital Signs Temp Pulse Resp BP Pulse Ox 98 F 91 H 13 194/103 98 12/28/17 01:42 12/28/17 01:42 12/28/17 01:42 12/28/17 01:42 12/28/17 01:42 - Physical Exam Narrative exam: Resting comfortably in bed. Family present. HEENT - normocephalic, no inflamation or lesions. neck supple Chest - clear Heart - reg. rate. Nl S-1, S-2. no extra sounds. Abdomen - soft, nontender. Extremities - no CCE. Neurological - speech fluent in Slovenian. CN's - intact 2 thru 12. Motor - 5/5 throughout. Reflexes - trace reflexes. Sensory - intact. Cerebellar - normal Results - Laboratory Findings CBC and BMP: 12/28/17 01:30 12/28/17 13:03 Abnormal Lab Findings: Abnormal Labs 12/28/17 12/28/17 12/28/17 01:30 01:30 01:30 MCV 98 H MCH 34 H Lymph % (Auto) 41.4 H BUN 28 H Creatinine 0.6 L Glucose 121 H POC Glucose Triglycerides LDL Cholesterol Direct HDL Cholesterol Salicylates < 0.3 L Acetaminophen 12/28/17 12/28/17 12/28/17 01:30 01:59 13:03 MCV MCH Lymph % (Auto) BUN 20 H Creatinine 0.6 L Glucose POC Glucose 129 H Triglycerides 219 H LDL Cholesterol Direct 134 H HDL Cholesterol 32 L Salicylates Acetaminophen < 5.0 L Assessment and Plan T62 year old female sustained a syncopal spell after getting some emotional news. Cardiac status has checked out as normal. Blood pressure which had been elevated has normalized. The patient has chest wall tenderness anteriorly, probable source of her chest pain. An MRI of the brain reveals only small vessel disease. no infarct. The syncopal event was probably a vasovagal spasm. Plan - OK to discharge from neurology point of view. Maintain antihypertensive meds, aspirin and atorvastatin.
--- NOTE | 2017-12-28 19:01 | Discharge Summary ---
Providers - Providers Date of Admission: 12/28/17 04:44 Attending physician: SIDDHARTH MEJIA MD 12/28/17 Consult to Cardiac Rehabilitation [CONS] Routine Reason For Exam: Phase I 12/28/17 07:50 Consult to Physician [CONS] Routine Comment: Consulting Provider: MIKO RIGGINS Physician Instructions: Reason For Exam: CVA 12/28/17 07:51 Consult to Cardiology [CONS] Routine Consulting Provider: ADAM ROJO Reason For Exam: CHEST PAIN AND SYNCOPE Occupational Therapy Evaluate and Treat [CONS] Routine Comment: Reason For Exam: Neuro deficits Physical Therapy Evaluation and Treat [CONS] Routine Comment: Reason For Exam: Neuro deficits Primary care physician: [facility] EXAMINER Hospitalization Condition: Good Disposition: DC-01 TO HOME OR SELFCARE Time spent for discharge: 35 mins Exam - Constitutional Vitals: Temp Pulse Resp BP Pulse Ox 97.6 F 59 L 18 129/57 100 12/28/17 15:18 12/28/17 15:18 12/28/17 15:18 12/28/17 15:18 12/28/17 15:18 Plan Activity: advance as tolerated, fall precautions Special Instructions: record daily weights, record blood sugar diary Follow up with: PRIMARY CAREMD [Primary Care Provider] - 3-5 Days
[2017-12-28 20:10] VITALS: BP 152/77
[2017-12-29] MEDS ORDERED: ECOTRIN PO SCH (10:00)
[2017-12-29] MEDS ORDERED: COZAAR PO SCH (10:00)
== END 2017-12-28 21:00 | disposition home or self-care (01) | DRG 312 ==
LOC: ED 01:28 → 4A 04:44 → UNDOADMIN 06:36 → 4A 06:36
PROVIDERS: ADMIT Internal Medicine; ATTEND Internal Medicine
DX: R55 Syncope and collapse (principal); I16.0 Hypertensive urgency; R41.89 Other symptoms and signs involving cognitive functions and awareness; E66.9 Obesity, unspecified; Z79.899 Other long term (current) drug therapy; I10 Essential (primary) hypertension; M17.0 Bilateral primary osteoarthritis of knee; E11.9 Type 2 diabetes mellitus without complications; R07.89 Other chest pain; Z68.29 Body mass index [BMI] 29.0-29.9, adult
CPT/HCPCS: 36415; 70450; 70551; 71045; 71275; 74174; 80048; 80053; 80061; 80320; 82550; 82553; 82962; 84484; 85025; 85610; 85670; 85730; 93005; 93010; 93306; 93880; 96361; 96374; 96375; G0480; J0360; J2270; J3010; J7040; Q9967

== ENCOUNTER 2018-11-29 07:30 | Outpatient (CLI) | payer OTHER ==
[2018-11-29] MEDS ORDERED: DOBUTamine 100 MG in D5W 92 ML IV ONE (08:38)
[2018-11-29] MEDS ORDERED: NACL 0.9% 500 ML 0 ML ONE (11:42)
--- NOTE | 2018-11-30 19:28 | Treadmill Report ---
DOBUTAMINE STRESS TEST Resting EKG revealed sinus rhythm with occasional PVC. Resting blood pressure was 120/70. The patient was given dobutamine starting with 5 mcg/kg/min and this was gradually increased every 3 minutes by 5 mcg. We reached 40 mcg total dose. At that time, her heart rate was noted to be 138 beats per minute, which is 85% target heart rate. The patient did not have any chest pain or ischemic ST segment depression. At this point, she had echocardiogram for segmental motion abnormality. Her blood pressure remained stable at 140/80. IMPRESSION: 1. This test is negative for ischemia from EKG point of view. 2. The echocardiogram findings are described in echocardiogram report. JOB# [id number] FESTUS/NIKITA
== END 2018-11-29 07:31 | disposition home or self-care (01) ==
LOC: ECHO 07:30
DX: I10 Essential (primary) hypertension (principal); E11.9 Type 2 diabetes mellitus without complications; M17.0 Bilateral primary osteoarthritis of knee; E78.00 Pure hypercholesterolemia, unspecified; K21.9 Gastro-esophageal reflux disease without esophagitis; J45.909 Unspecified asthma, uncomplicated
CPT/HCPCS: 93017; 93320; 93325; 93350; J1250; J7040

== ENCOUNTER 2019-01-16 06:31 | Day surgery (SDC) | payer OTHER ==
[2019-01-16] MEDS ORDERED: SODIUM CHLORIDE 0.9% 1000 ML 1,000 ML IV SCH (07:00)
--- NOTE | 2019-01-16 07:29 | Anesthesia Day of Surgery ---
Anesthesia Day of Surgery - Day of Surgery Patient Examined: Yes Patient H&P Reviewed: Yes Patient is NPO: Yes
--- NOTE | 2019-01-16 07:31 | Anesthesia Consultation ---
Anesthesia Consult and Med Hx - Airway Anesthetic Teeth Evaluation: Good ROM Head & Neck: Adequate Mental/Hyoid Distance: Adequate Mallampati Class: Class III Intubation Access Assessment: Probably Good - Pulmonary Exam CTA: Yes - Cardiac Exam Cardiac Exam: RRR - Pre-Operative Health Status ASA Pre-Surgery Classification: ASA3 - Pulmonary Hx Smoking: No Hx Asthma: No (but has inhaler for frequent colds) COPD: No Hx Pneumonia: No - Cardiovascular System Hx Hypertension: Yes (8YRS) Hx Coronary Artery Disease: No Hx Heart Attack/AMI: No Hx Angina: No - Central Nervous System Hx Seizures: No CVA: No Hx Psychiatric Problems: No - Gastrointestinal Hx Ulcer: Yes Hx Gastroesophageal Reflux Disease: Yes - Endocrine Hx Renal Disease: No Hx End Stage Renal Disease: No Hx Liver Disease: No Hx Non-Insulin Dependent Diabetes: Yes Hx Thyroid Disease: No - Hematic Hx Anemia: Yes - Other Systems Hx Obesity: Yes
[2019-01-16] MEDS ORDERED: fentaNYL 100 MCG/2 ML INJ ONE (07:46)
[2019-01-16] MEDS ORDERED: PROPOFOL 200 MG/20 ML VIAL IV ONE ×2 (07:47)
[2019-01-16] MEDS ORDERED: LIDOCAINE (2%) 20 MG/1 ML VIAL 20 ML MDV INFILTRATI ONE (07:50)
--- NOTE | 2019-01-16 08:59 | Operative Report ---
Operative Report Operative Report: Esophagogastroduodenoscopy Procedure Note with Balloon Dilatation Date of procedure: 01/16/2019 Endoscopist: Hao Herring Pre-op diagnosis/indication: Dysphagia, GERD Post-op diagnosis: Schatski Ring, otherwise normal upper endoscopy MEDICATIONS: MAC COMPLICATIONS: No immediate complications ESTIMATED BLOOD LOSS: Minimal DESCRIPTION OF PROCEDURE: After consent was obtained, the patient was placed in the left lateral decubitis position. The fujinon endoscope was inserted into the patient's mouth under direct vision and advanced to the 2nd portion of the duodenum without difficulty. The patient tolerated the procedure well. The views of the mucosa were good. The patient's vital signs were monitored continuously throughout the procedure. FINDINGS: There was a non-obstructing, widely patent B ring in the lower esophagus. Dilatation was performed with 20 mm balloon. The esophagus otherwise appeared normal. The stomach and duodenum appeared normal. IMPRESSION: 1. Schatski ring s/p balloon dilatation (20 mm balloon) 2. Otherwise, unremarkable upper endoscopy RECOMMENDATIONS: -continue anti-acid medication daily -follow-up in GI clinic as scheduled
--- NOTE | 2019-01-16 09:01 | Operative Report ---
Operative Report Operative Report: Colonoscopy Procedure Note with Biopsy Date of procedure: 01/16/2019 Endoscopist: Hao Herring Pre-op diagnosis/indication: Screening for colorectal cancer Post-op diagnosis: Small cecal polyp removed, diverticulosis, internal hemorrhoids MEDICATIONS: MAC COMPLICATIONS: No immediate complications ESTIMATED BLOOD LOSS: none DESCRIPTION OF PROCEDURE: After consent was obtained, the patient was placed in the left lateral decubitis position. The fujinon colonoscope was inserted into the rectum under direct vision, and advanced to the cecum without difficulty. The quality of prep was fair. The patient tolerated the procedure well. The patient's vital signs were monitored continuously throughout the procedure. FINDINGS: There was an ~2 mm sessile polyp in the cecum. The polyp was removed and retrieved with cold biopsy forceps. Diverticulosis in the left side of the colon. Internal hemorrhoids were visualized on retroflexion view. IMPRESSION: 1. Cecal polyp removed with cold biospy forceps 2. Diverticulosis 3. Internal hemorrhoids RECOMMENDATIONS: -follow up pathology -high fiber diet daily -repeat colonoscopy for surveillance in 3-5 years (due to fair prep and polyp removed)
--- NOTE | 2019-01-16 09:03 | Post Operative Note ---
Date of procedure: 01/16/19 Pre-op diagnosis: screening for colorectal cancer, dysphagia Post-op diagnosis: other (Schatski ring s/p dilatation; cecal polyp) Findings: Colonoscopy: cecal polyp removed with cold biopsy forceps, diverticulosis, internal hemorrhoids EGD: Schatski ring s/p balloon dilatation Procedure: EGD with balloon dilatation Colonoscopy with cold biopsy forceps Anesthesia: MAC Surgeon: KAELA HUNTER Estimated blood loss: minimal Pathology: list (Jar A - cecal polyp) Specimen disposition: to lab Condition: stable Disposition: same day
[2019-01-16 09:40] VITALS: BP 139/75
--- NOTE | 2019-01-16 15:46 | Post Anesthesia Evaluation ---
- Post Anesthesia Evaluation Patient Participated: Yes Airway Patent: Yes Stable Respiratory Function: Yes Nausea/Vomiting: Yes Temp > 96.8F: No Pain Manageable: Yes Adequeate Hydration: Yes Anesthesia Complications: No Block Receding Appropriately: Not Applicable Patient on Ventilator: No
== END 2019-01-16 09:47 | disposition home or self-care (01) ==
LOC: GIO 06:31
PROVIDERS: ATTEND Internal Medicine Gastroenterology
DX: Z12.11 Encounter for screening for malignant neoplasm of colon (principal); D12.0 Benign neoplasm of cecum; R13.10 Dysphagia, unspecified; K21.9 Gastro-esophageal reflux disease without esophagitis; K57.30 Diverticulosis of large intestine without perforation or abscess without bleeding; K64.8 Other hemorrhoids; E78.00 Pure hypercholesterolemia, unspecified; I10 Essential (primary) hypertension; E66.9 Obesity, unspecified; M19.90 Unspecified osteoarthritis, unspecified site; E11.9 Type 2 diabetes mellitus without complications; F32.9 Major depressive disorder, single episode, unspecified; F41.9 Anxiety disorder, unspecified; Z79.899 Other long term (current) drug therapy; Z79.84 Long term (current) use of oral hypoglycemic drugs; Z68.38 Body mass index [BMI] 38.0-38.9, adult; Z86.2 Personal history of diseases of the blood and blood-forming organs and certain disorders involving the immune mechanism
CPT/HCPCS: 43249; 45380; 82962; 88305; C1726; J2704; J3010; J7030

== ENCOUNTER 2020-05-08 15:10 | Emergency (ER) | payer MEDICARE ==
--- NOTE | 2020-05-08 15:35 | Event Note ---
ED Screening Note Date of service: 05/08/20 Time: 15:34 ED Screening Note: sent here from PCP for glucose of 508 c/o headache only today This initial assessment/diagnostic orders/clinical plan/treatment(s) is/are subject to change based on patients health status, clinical progression and re-assessment by fellow clinical providers in the ED. Further treatment and workup at subsequent clinical providers discretion. Patient/guardian urged not to elope from the ED as their condition may be serious if not clinically assessed and managed. Initial orders include: labs
[2020-05-08 16:13] LABS: Basophils % (Auto) 0.2 % (0.0-1.8); Eosinophils # (Auto) 0.3 K/mm3 (0.0-0.4); Eosinophils % (Auto) 2.8 % (0.0-4.3); Hematocrit 38.8 % (30.3-42.9); Hemoglobin 12.9 gm/dl (10.1-14.3); Lymphocytes # (Auto) 3.1 K/mm3 (1.2-5.4); Lymphocytes % (Auto) 31.2 % (13.4-35.0); Mean Corpuscular HGB Conc 33 % (30-34); Mean Corpuscular Volume 97 fl (79-97); Monocytes # (Auto) 0.7 K/mm3 (0.0-0.8); Monocytes % (Auto) 7.6 % (0.0-7.3); Platelet Count 201 K/mm3 (140-440); Red Cell Distribution Width 12.8 % (13.2-15.2)
[2020-05-08 16:34] LABS: Albumin 4.2 g/dL (3.9-5); Calcium 9.5 mg/dL (8.4-10.2)
[2020-05-08] MEDS ORDERED: SODIUM CHLORIDE 0.9% 1000 ML 2,000 ML IV ONE (16:52)
[2020-05-08] MEDS ORDERED: INSULIN REGULAR, HUMAN 100 UNITS/1 ML IV ONE (16:52)
[2020-05-08 17:17] LABS: Bacteria,Urine 1+ /HPF (Negative); Bilirubin,Urine NEG (Negative); Blood,Urine SM (Negative); Color,Urine Yellow (Yellow); Hyaline Casts,Urine 1 /LPF; Urobilinogen,Urine < 2.0 mg/dL (<2.0)
--- NOTE | 2020-05-08 18:31 | Emergency Department Report ---
ED General Adult HPI - General Chief complaint: Hyperglycemia Stated complaint: HIGH BLOOD SUGAR PUI?: No Time Seen by Provider: 05/08/20 15:34 Source: patient, RN notes reviewed, old records reviewed Mode of arrival: Ambulatory Limitations: No Limitations - History of Present Illness Initial comments: The patient was evaluated in the emergency department for symptoms described in the history of present illness. He/she was evaluated in the context of the global COVID-19 pandemic, which necessitated consideration that the patient might be at risk for infection with the virus that causes COVID-19. Institutional protocols and algorithms that pertain to the evaluation of patients at risk for COVID-19 are in a state of rapid change based on information released by regulatory bodies including the CDC and federal and state organizations. These policies and algorithms were followed during the patient's care in the emergency department. Please note that these policies, procedures and recommendations changed on a rapid basis. This provider is conversant in Irish. The patient is a pleasant 64-year-old female. I have evaluated her in the past. She is sent to the emergency room by her primary care doctor for asymptomatic hyperglycemia. Patient denies physical pain. To me, she denies headache, neck pain, chest pain, abdominal pain, shortness of breath, cough, loss of taste and smell, and urinary symptoms. She is sent here for blood glucose of 508. Patient reports compliance with her diabetic medications. Improves with: none Worsens with: none Associated Symptoms: denies other symptoms - Related Data Home Medications Medication Instructions Recorded Confirmed Last Taken Losartan/Hydrochlorothiazide 1 each PO QDAY 08/28/14 01/16/19 01/14/19 [Hyzaar 100-25 TAB] gemfibroziL [Lopid] 600 mg PO BID 08/28/14 01/16/19 01/14/19 metFORMIN 500 mg PO BID 01/16/19 01/16/19 01/14/19 Allergies Allergy/AdvReac Type Severity Reaction Status Date / Time No Known Allergies Allergy Verified 05/08/20 15:28 ED Review of Systems ROS: Stated complaint: HIGH BLOOD SUGAR Other details as noted in HPI Constitutional: denies: fever Eyes: denies: eye discharge ENT: denies: epistaxis Respiratory: denies: cough Cardiovascular: denies: chest pain Gastrointestinal: denies: abdominal pain, nausea, vomiting, diarrhea, constipation, hematemesis, melena, hematochezia Genitourinary: denies: dysuria Musculoskeletal: denies: back pain Neurological: denies: headache, weakness Hematological/Lymphatic: denies: easy bleeding ED Past Medical Hx - Past Medical History Hx Hypertension: Yes (8YRS) Hx Heart Attack/AMI: No Hx Congestive Heart Failure: No Hx Diabetes: Yes Hx Liver Disease: No Hx Renal Disease: No Hx Arthritis: Yes Hx Seizures: No Hx Psychiatric Treatment: Yes (depression) Hx Asthma: No (but has inhaler for frequent colds) Hx COPD: No Hx HIV: No Additional medical history: ULCER - Surgical History Additional Surgical History: KNEE SURGERY - Social History Smoking Status: Never Smoker Substance Use Type: None - Medications Home Medications: Home Medications Medication Instructions Recorded Confirmed Last Taken Type Losartan/Hydrochlorothiazide 1 each PO QDAY 08/28/14 01/16/19 01/14/19 History [Hyzaar 100-25 TAB] gemfibroziL [Lopid] 600 mg PO BID 08/28/14 01/16/19 01/14/19 History metFORMIN 500 mg PO BID 01/16/19 01/16/19 01/14/19 History ED Physical Exam - General Limitations: No Limitations General appearance: alert, in no apparent distress - Head Head exam: Present: atraumatic, normocephalic - Eye Eye exam: Present: normal appearance, EOMI. Absent: nystagmus - ENT ENT exam: Present: normal exam, normal orophraynx, mucous membranes moist, normal external ear exam - Neck Neck exam: Present: normal inspection, full ROM. Absent: tenderness, meningismus - Respiratory Respiratory exam: Present: normal lung sounds bilaterally. Absent: respiratory distress, wheezes, rales, rhonchi, stridor, decreased breath sounds - Cardiovascular Cardiovascular Exam: Present: regular rate, normal rhythm, normal heart sounds. Absent: bradycardia, tachycardia, irregular rhythm, systolic murmur, diastolic murmur, rubs, gallop - GI/Abdominal GI/Abdominal exam: Present: soft. Absent: distended, tenderness, guarding, rebound, rigid, pulsatile mass - Extremities Exam Extremities exam: Present: normal inspection, full ROM, other (2+ pulses noted in the bilateral upper and lower extremities. There is no palpable cord. negative Homans sign. Muscular compartments are soft. The pelvis is stable.). Absent: pedal edema, calf tenderness - Back Exam Back exam: Present: normal inspection, full ROM. Absent: tenderness, CVA tenderness (R), CVA tenderness (L), paraspinal tenderness, vertebral tenderness - Neurological Exam Neurological exam: Present: alert, other (No facial droop. Tongue midline. Extraocular movements intact bilaterally. Facial sensation intact to light touch in V1, V2, V3 distribution bilaterally. 5 and a 5 strength in 4 extremities. Sensation intact to light touch in 4 extremities.). Absent: motor sensory deficit - Psychiatric Psychiatric exam: Present: normal affect, normal mood - Skin Skin exam: Present: warm, dry, intact, normal color. Absent: rash ED Course Vital Signs 05/08/20 05/08/20 05/08/20 15:32 19:05 19:30 Temperature 98.1 F Pulse Rate 85 76 Respiratory 18 21 16 Rate Blood Pressure 138/67 O2 Sat by Pulse 100 99 Oximetry 05/08/20 05/08/20 20:01 21:01 Temperature Pulse Rate 77 80 Respiratory 20 19 Rate Blood Pressure 141/57 132/63 O2 Sat by Pulse 98 97 Oximetry - Reevaluation(s) Reevaluation #1: 05/08/20 18:31 Differential diagnosis, including but not limited to: Dehydration, hyperglycemia Assessment and plan 64-year-old female, who is pleasant, calm and cooperative, laughing, smiling, in no acute distress, referred to the emergency room for asymptomatic hyperglycemia. Patient did endorse intermittent increased thirst and requested water, which we provided her. Laboratory studies were ordered prior to my personal evaluation, demonstrated very mild renal insufficiency, and hyperglycemia, without anion gap acidosis. Most recent echocardiogram demonstrated an ejection fraction of 60%. Patient is clinically sober at this time. She will be given fluids, and insulin. She can follow-up with her outpatient primary care doctor for her chronic hyperglycemia, and mild renal insufficiency once her glucose improves. Reevaluation #2: 05/09/20 22:23 Accu-Chek improved at discharge. Patient had an uneventful stay in this emergency department. ED Medical Decision Making - Lab Data Result diagrams: 05/08/20 15:49 05/08/20 15:49 Vital Signs 05/08/20 15:32 Temperature 98.1 F Pulse Rate 85 Respiratory 18 Rate Blood Pressure 138/67 O2 Sat by Pulse 100 Oximetry Lab Results 05/08/20 05/08/20 05/08/20 Range/Units 15:35 15:49 15:49 WBC 9.8 (4.5-11.0) K/mm3 RBC 4.00 (3.65-5.03) M/mm3 Hgb 12.9 (10.1-14.3) gm/dl Hct 38.8 (30.3-42.9) % MCV 97 (79-97) fl MCH 32 (28-32) pg MCHC 33 (30-34) % RDW 12.8 L (13.2-15.2) % Plt Count 201 (140-440) K/mm3 Lymph % (Auto) 31.2 (13.4-35.0) % [place] % (Auto) 7.6 H (0.0-7.3) % Eos % (Auto) 2.8 (0.0-4.3) % Baso % (Auto) 0.2 (0.0-1.8) % Lymph # (Auto) 3.1 (1.2-5.4) K/mm3 [place] # (Auto) 0.7 (0.0-0.8) K/mm3 Eos # (Auto) 0.3 (0.0-0.4) K/mm3 Baso # (Auto) 0.0 (0.0-0.1) K/mm3 Seg Neutrophils % 58.2 (40.0-70.0) % Seg Neutrophils # 5.7 (1.8-7.7) K/mm3 Sodium 135 L (137-145) mmol/L Potassium 4.5 (3.6-5.0) mmol/L Chloride 95.6 L (98-107) mmol/L Carbon Dioxide 25 (22-30) mmol/L Anion Gap 19 mmol/L BUN 21 H (7-17) mg/dL Creatinine 1.3 H (0.6-1.2) mg/dL Estimated GFR 41 ml/min BUN/Creatinine Ratio 16 % Glucose 481 H (65-100) mg/dL POC Glucose 468 H (70-105) mg/dL Calcium 9.5 (8.4-10.2) mg/dL Total Bilirubin 0.50 (0.1-1.2) mg/dL AST 18 (5-40) units/L ALT 21 (7-56) units/L Alkaline Phosphatase 127 (35-129) units/L Total Protein 8.1 (6.3-8.2) g/dL Albumin 4.2 (3.9-5) g/dL Albumin/Globulin Ratio 1.1 % Urine Color (Yellow) Urine Turbidity (Clear) Urine pH (5.0-7.0) Ur Specific [place] (1.003-1.030) Urine Protein (Negative) mg/dL Urine Glucose (UA) (Negative) mg/dL Urine Ketones (Negative) mg/dL Urine Blood (Negative) Urine Nitrite (Negative) Urine Bilirubin (Negative) Urine Urobilinogen (<2.0) mg/dL Ur Leukocyte Esterase (Negative) Urine WBC (Auto) (0.0-6.0) /HPF Urine RBC (Auto) (0.0-6.0) /HPF U Epithel Cells (Auto) (0-13.0) /HPF Urine Bacteria (Auto) (Negative) /HPF Hyaline Casts /LPF 05/08/20 Range/Units 16:26 WBC (4.5-11.0) K/mm3 RBC (3.65-5.03) M/mm3 Hgb (10.1-14.3) gm/dl Hct (30.3-42.9) % MCV (79-97) fl MCH (28-32) pg MCHC (30-34) % RDW (13.2-15.2) % Plt Count (140-440) K/mm3 Lymph % (Auto) (13.4-35.0) % [place] % (Auto) (0.0-7.3) % Eos % (Auto) (0.0-4.3) % Baso % (Auto) (0.0-1.8) % Lymph # (Auto) (1.2-5.4) K/mm3 [place] # (Auto) (0.0-0.8) K/mm3 Eos # (Auto) (0.0-0.4) K/mm3 Baso # (Auto) (0.0-0.1) K/mm3 Seg Neutrophils % (40.0-70.0) % Seg Neutrophils # (1.8-7.7) K/mm3 Sodium (137-145) mmol/L Potassium (3.6-5.0) mmol/L Chloride (98-107) mmol/L Carbon Dioxide (22-30) mmol/L Anion Gap mmol/L BUN (7-17) mg/dL Creatinine (0.6-1.2) mg/dL Estimated GFR ml/min BUN/Creatinine Ratio % Glucose (65-100) mg/dL POC Glucose (70-105) mg/dL Calcium (8.4-10.2) mg/dL Total Bilirubin (0.1-1.2) mg/dL AST (5-40) units/L ALT (7-56) units/L Alkaline Phosphatase (35-129) units/L Total Protein (6.3-8.2) g/dL Albumin (3.9-5) g/dL Albumin/Globulin Ratio % Urine Color Yellow (Yellow) Urine Turbidity Clear (Clear) Urine pH 5.0 (5.0-7.0) Ur Specific [place] 1.014 (1.003-1.030) Urine Protein 30 mg/dl (Negative) mg/dL Urine Glucose (UA) >=500 (Negative) mg/dL Urine Ketones Neg (Negative) mg/dL Urine Blood Sm (Negative) Urine Nitrite Neg (Negative) Urine Bilirubin Neg (Negative) Urine Urobilinogen < 2.0 (<2.0) mg/dL Ur Leukocyte Esterase Neg (Negative) Urine WBC (Auto) 5.0 (0.0-6.0) /HPF Urine RBC (Auto) 3.0 (0.0-6.0) /HPF U Epithel Cells (Auto) 2.0 (0-13.0) /HPF Urine Bacteria (Auto) 1+ (Negative) /HPF Hyaline Casts 1 /LPF Critical Care Time: Yes Critical care time in (mins) excluding proc time.: 35 Critical care attestation.: If time is entered above; I have spent that time in minutes in the direct care of this critically ill patient, excluding procedure time. ED Disposition Clinical Impression: Hyperglycemia, Renal insufficiency Disposition: DC-01 TO HOME OR SELFCARE Is pt being admited?: No Does the pt Need Aspirin: No Condition: Good Instructions: Hyperglycemia, Eunr-oo-Ocmn, Preventing Chronic Kidney Disease Additional Instructions: Do not take Motrin, ibuprofen, Naprosyn, Aleve. Continue outpatient diabetic medications, and diabetic diet. Please follow-up with your primary care doctor within the next week to 2 weeks. Please return to the emergency room right away with new pain, worsening pain, migration of pain, projectile vomiting, change in mental status, confusion, inability to tolerate liquid feeds, new, worsening or different symptoms not present on the initial emergency room evaluation No tome Motrin, ibuprofeno, Naprosyn, Aleve. Contine con los medicamentos para pacientes diabticos y la dieta para diabticos. Jaylen un seguimiento con walker mdico de atencin primaria dentro de la prxima semana a 2 semanas. Regrese a la jayne de emergencias de inmediato con un nuevo dolor, empeoramiento del dolor, migracin del dolor, vmitos en proyectil, cambio en el estado mental, confusin, incapacidad para tolerar alimentos lquidos, sntomas nuevos, que empeoran o diferentes sntomas que no estn presentes en la evaluacin inicial de la jayne de emergencias Referrals: DEEP MIRZA MD [Staff Physician] - 3-5 Days Print Language: OCCITAN
[2020-05-08] MEDS ORDERED: SODIUM CHLORIDE 0.9% 1000 ML 1,000 ML ONE (20:00)
[2020-05-08 21:16] VITALS: BP 132/63
== END 2020-05-08 21:20 | disposition home or self-care (01) ==
LOC: ED 15:10
DX: E11.65 Type 2 diabetes mellitus with hyperglycemia (principal); N28.9 Disorder of kidney and ureter, unspecified; I10 Essential (primary) hypertension; M19.91 Primary osteoarthritis, unspecified site; F32.9 Major depressive disorder, single episode, unspecified; Z98.890 Other specified postprocedural states; Z79.84 Long term (current) use of oral hypoglycemic drugs; Z79.899 Other long term (current) drug therapy
CPT/HCPCS: 36415; 80053; 81001; 82962; 85025; 96361; 96374; 99283; J7030; J1815

== ENCOUNTER 2020-08-18 16:16 | Emergency (ER) | payer MEDICARE ==
--- NOTE | 2020-08-18 20:21 | Event Note ---
ED Screening Note Date of service: 08/18/20 Time: 20:20 ED Screening Note: 64-year-old female patient presents to emergency department with complaints of vomiting starting today. Last bowel movement was yesterday. Patient also endorses urinary frequency and pain along the right side of her back. Patient speaks Bahamian; she is accompanied by Colombian-speaking family member. General: Awake, appropriately interactive. Actively vomiting in triage. Neck: Supple. Full range of motion intact. Cardiovascular: Normal peripheral perfusion. Pulmonary: No respiratory distress. Patient is speaking normally without use of accessory muscles. Skin: No apparent rashes or lesions. Neurological: No facial asymmetry. Speech is clear. Follows commands. Patient is alert and oriented. Musculoskeletal: Moves all four extremities spontaneously with normal range of motion. Psych: Cooperative. Appropriate mood and affect. I have greeted and performed a focused rapid initial assessment of this patient. A comprehensive ED assessment and evaluation of the patient, analysis of all test results, and completion of the medical decision-making process will be conducted by additional ED providers. This initial assessment/diagnostic orders/clinical plan/treatment(s) is/are subject to change based on patients health status, clinical progression and re-assessment. Further treatment and workup at subsequent clinical provider's discretion. Patient/guardian urged not to elope from the ED as their condition may be serious if not clinically assessed and managed.
[2020-08-18 20:23] VITALS: BP 147/107
[2020-08-18 20:57] LABS: Basophils # (Auto) 0.1 K/mm3 (0.0-0.1); Basophils % (Auto) 0.7 % (0.0-1.8); Eosinophils # (Auto) 0.2 K/mm3 (0.0-0.4); Eosinophils % (Auto) 1.9 % (0.0-4.3); Hematocrit 36.6 % (30.3-42.9); Hemoglobin 12.5 gm/dl (10.1-14.3); Lymphocytes # (Auto) 3.5 K/mm3 (1.2-5.4); Lymphocytes % (Auto) 32.1 % (13.4-35.0); Mean Corpuscular HGB Conc 34 % (30-34); Mean Corpuscular Volume 97 fl (79-97); Monocytes # (Auto) 0.8 K/mm3 (0.0-0.8); Monocytes % (Auto) 6.8 % (0.0-7.3); Platelet Count 247 K/mm3 (140-440); Red Blood Count 3.75 M/mm3 (3.65-5.03); Red Cell Distribution Width 12.7 % (13.2-15.2)
[2020-08-18] MEDS ORDERED: ONDANSETRON 4 MG/2 ML INJ IV ONE (20:57)
[2020-08-18] MEDS ORDERED: SODIUM CHLORIDE 0.9% 1000 ML 1,000 ML IV ONE (20:57)
--- NOTE | 2020-08-18 21:03 | Emergency Department Report ---
ED Abdominal Pain HPI - General Chief Complaint: Abdominal Pain Stated Complaint: VOMITING Time Seen by Provider: 08/18/20 20:40 Source: patient, pulmonary nurse practitioner Mode of arrival: Wheelchair Limitations: Physical Limitation - History of Present Illness Initial Comments: 64-year-old female patient history of obesity, hypertension, diabetes type 2, hyperlipidemia , who presents to emergency department with complaints of vomiting and right upper quad pain , starting today. Pain is rated as 5/10. Last bowel movement was yesterday. Patient also endorses urinary frequency and pain along the right side of her back. Pt denies hx of renal or gall stones. Patient speaks Belgian; she is accompanied by Ivorian-speaking family member- son. MD Complaint: abdominal pain, flank pain - Related Data Home Medications Medication Instructions Recorded Confirmed Last Taken Losartan/Hydrochlorothiazide 1 each PO QDAY 08/28/14 01/16/19 01/14/19 [Hyzaar 100-25 TAB] gemfibroziL [Lopid] 600 mg PO BID 08/28/14 01/16/19 01/14/19 metFORMIN 500 mg PO BID 01/16/19 01/16/19 01/14/19 Previous Rx's Medication Instructions Recorded Last Taken Type Ondansetron [Zofran Odt] 4 mg PO Q8HR PRN #12 tab.rapdis 08/19/20 Unknown Rx Allergies Allergy/AdvReac Type Severity Reaction Status Date / Time No Known Allergies Allergy Verified 05/08/20 15:28 ED Review of Systems ROS: Stated complaint: VOMITING Other details as noted in HPI Constitutional: malaise. denies: chills, fever Eyes: denies: eye pain, eye discharge, vision change ENT: denies: ear pain, throat pain Respiratory: denies: cough, shortness of breath, wheezing Cardiovascular: denies: chest pain, palpitations Endocrine: no symptoms reported Gastrointestinal: abdominal pain, nausea, vomiting. denies: diarrhea, constipation, melena Genitourinary: dysuria, frequency. denies: urgency, hematuria, discharge Musculoskeletal: back pain Skin: denies: rash, lesions Neurological: denies: headache, weakness, paresthesias Psychiatric: denies: anxiety, depression Hematological/Lymphatic: denies: easy bleeding, easy bruising ED Past Medical Hx - Past Medical History Previous Medical History?: Yes Hx Hypertension: Yes (8YRS) Hx Heart Attack/AMI: No Hx Congestive Heart Failure: No Hx Diabetes: Yes Hx Liver Disease: No Hx Renal Disease: No Hx Arthritis: Yes Hx Seizures: No Hx Psychiatric Treatment: Yes (depression) Hx Asthma: No (but has inhaler for frequent colds) Hx COPD: No Hx HIV: No Additional medical history: ULCER - Surgical History Additional Surgical History: KNEE SURGERY - Social History Smoking Status: Never Smoker Substance Use Type: None - Medications Home Medications: Home Medications Medication Instructions Recorded Confirmed Last Taken Type Losartan/Hydrochlorothiazide 1 each PO QDAY 08/28/14 01/16/19 01/14/19 History [Hyzaar 100-25 TAB] gemfibroziL [Lopid] 600 mg PO BID 08/28/14 01/16/19 01/14/19 History metFORMIN 500 mg PO BID 01/16/19 01/16/19 01/14/19 History Ondansetron [Zofran Odt] 4 mg PO Q8HR PRN #12 tab.rapdis 08/19/20 Unknown Rx ED Physical Exam - General Limitations: Physical Limitation General appearance: alert, in no apparent distress - Head Head exam: Present: atraumatic, normocephalic - Eye Eye exam: Present: normal appearance, EOMI Pupils: Present: normal accommodation - ENT ENT exam: Present: mucous membranes moist - Neck Neck exam: Present: normal inspection, full ROM. Absent: tenderness - Respiratory Respiratory exam: Present: normal lung sounds bilaterally, chest wall tend erness. Absent: respiratory distress, wheezes, stridor - Cardiovascular Cardiovascular Exam: Present: regular rate, normal rhythm, normal heart sounds. Absent: systolic murmur, diastolic murmur, rubs, gallop - GI/Abdominal GI/Abdominal exam: Present: tenderness (RUQ, Right flank ), guarding (RUQ ), normal bowel sounds. Absent: rebound, rigid, bruit, hernia - Expanded GI/Abdominal Exam Expanded GI/Abdominal exam: Present: Chisholm's sign. Absent: psoas sign, obturator sign, heel tap sign, Rovsing's sign, tenderness at Mcburney's Point - Rectal Rectal exam: Present: deferred - Extremities Exam Extremities exam: Present: normal inspection, full ROM, normal capillary refill - Back Exam Back exam: Present: full ROM, CVA tenderness (R) - Neurological Exam Neurological exam: Present: alert, oriented X3, CN II-XII intact, normal gait - Psychiatric Psychiatric exam: Present: normal affect, normal mood - Skin Skin exam: Present: warm, dry, intact, normal color. Absent: rash ED Course Vital Signs 08/18/20 20:22 Temperature 98.7 F Pulse Rate 74 Respiratory 18 Rate Blood Pressure 147/107 [Right] O2 Sat by Pulse 99 Oximetry ED Medical Decision Making - Lab Data Result diagrams: 08/18/20 20:32 08/18/20 20:32 Labs 08/18/20 08/18/20 08/18/20 20:32 20:32 20:55 WBC 11.0 RBC 3.75 Hgb 12.5 Hct 36.6 MCV 97 MCH 33 H MCHC 34 RDW 12.7 L Plt Count 247 Lymph % (Auto) 32.1 [place] % (Auto) 6.8 Eos % (Auto) 1.9 Baso % (Auto) 0.7 Lymph # (Auto) 3.5 [place] # (Auto) 0.8 Eos # (Auto) 0.2 Baso # (Auto) 0.1 Seg Neutrophils % 58.5 Seg Neutrophils # 6.4 Sodium 138 Potassium 4.3 Chloride 99.7 Carbon Dioxide 27 Anion Gap 16 BUN 26 H Creatinine 0.9 Estimated GFR > 60 BUN/Creatinine Ratio 29 Glucose 102 H Calcium 9.7 Magnesium 1.60 L Total Bilirubin 0.70 AST 31 ALT 23 Alkaline Phosphatase 101 Total Protein 8.1 Albumin 4.2 Albumin/Globulin Ratio 1.1 Lipase 32 Urine Color Yellow Urine Turbidity Clear Urine pH 6.0 Ur Specific [place] 1.015 Urine Protein <15 mg/dl Urine Glucose (UA) Neg Urine Ketones Neg Urine Blood Neg Urine Nitrite Neg Urine Bilirubin Neg Urine Urobilinogen < 2.0 Ur Leukocyte Esterase Neg Urine WBC (Auto) < 1.0 Urine RBC (Auto) 3.0 U Epithel Cells (Auto) < 1.0 Urine Mucus Few - Radiology Data Radiology results: report reviewed, image reviewed US RUQ normal, no mass no stones , pt advises pain is improved, pt is toleratding po intake at this itme, pt will be dc'd to home with rx will follow up with GI as directed, will continue wt second rigger as scheduled, pt is a/o x 3 ambulatory with with steady gain to congress - Medical Decision Making US RUQ normal, no mass no stones , pt advises pain is improved, pt is toleratding po intake at this itme, pt will be dc'd to home with rx will follow up with GI as directed, will continue wt second rigger as scheduled, pt is a/o x 3 ambulatory with with steady gain to [place] Critical care attestation.: If time is entered above; I have spent that time in minutes in the direct care of this critically ill patient, excluding procedure time. ED Disposition Clinical Impression: Abdominal pain Qualifiers: Abdominal location: lower abdomen, unspecified Qualified Code(s): R10.30 - Lower abdominal pain, unspecified Disposition: DC-01 TO HOME OR SELFCARE Is pt being admited?: No Does the pt Need Aspirin: No Condition: Stable Instructions: Abdominal Pain (ED), Abdominal Pain, Adult, [id number], Abdominal Pain, Adult Additional Instructions: Take medications as prescribed , return to emergency if symptoms worsen, follow up with your doctor as scheduled Prescriptions: Ondansetron [Zofran Odt] 4 mg PO Q8HR PRN #12 tab.rapdis PRN Reason: nuasea vomiting Referrals: CATHERINE HERNANDEZ MD [Primary Care Provider] - 3-5 Days Forms: Work/School Release Form(ED) Time of Disposition: 01:24
[2020-08-18 21:08] LABS: Alanine Aminotransferase 23 units/L (7-56); Albumin 4.2 g/dL (3.9-5); BUN/Creatinine Ratio 29; Blood Urea Nitrogen 26 mg/dL (7-17); Calcium 9.7 mg/dL (8.4-10.2); Hemolysis Index 15
[2020-08-18 21:25] LABS: Bilirubin,Urine NEG (Negative); Blood,Urine NEG (Negative); Color,Urine Yellow (Yellow); Mucus,Urine FEW /HPF; Protein,Urine <15 mg/dL mg/dL (Negative); Urobilinogen,Urine < 2.0 mg/dL (<2.0); WBC,Urine < 1.0 /HPF (0.0-6.0)
--- NOTE | 2020-08-19 01:25 | Ultrasound Report ---
ULTRASOUND ABDOMEN, LIMITED (RIGHT UPPER QUADRANT) INDICATION: RUQ Pain. COMPARISON: None available. FINDINGS: Pancreas: Visualized portion shows no significant abnormality. Liver: Normal. Gallbladder: Normal. Bile ducts: Normal. Common Bile Duct measures 1.8 mm. Free fluid: None. Additional Findings: None. IMPRESSION: Unremarkable right upper quadrant ultrasound. Signer Name: Nasim Espinosa MD Signed: 08/19/2020 1:20 AM Workstation Name: [id number]
== END 2020-08-19 02:09 | disposition home or self-care (01) ==
LOC: ED 16:16
DX: R10.11 Right upper quadrant pain (principal); I10 Essential (primary) hypertension; M19.90 Unspecified osteoarthritis, unspecified site; E11.9 Type 2 diabetes mellitus without complications; F32.9 Major depressive disorder, single episode, unspecified; Z79.899 Other long term (current) drug therapy
CPT/HCPCS: 36415; 76705; 80053; 81001; 83690; 83735; 85025; 96361; 96374; 99284; J2405; J7030